=== PATIENT | female | born 1950 | race African-American/Black ===

== ENCOUNTER 2017-06-22 02:12 | Inpatient (IN) | END 2017-06-23 17:10 | disposition home or self-care (01) | DRG 68 ==

== ENCOUNTER 2017-06-26 00:15 | Inpatient (IN) | END 2017-07-03 14:22 | DRG 64 ==

== ENCOUNTER 2017-07-03 14:39 | Inpatient (IN) | END 2017-07-10 11:25 | disposition home health service (06) | DRG 56 ==